=== PATIENT | female | born 1990 | race Caucasian/White ===

== ENCOUNTER 2017-12-26 10:28 | Emergency (ER) | payer SELFPAY ==
[2017-12-26] MEDS ORDERED: LIDOCAINE 2% VISCOUS SOLN 20 ML UDCUP PO ONE (10:59)
[2017-12-26] MEDS ORDERED: PENICILLIN V POTASSIUM 500 MG TABLET PO ONE (10:59)
--- NOTE | 2017-12-26 11:03 | ER Document Report ---
ED Oral Problem - General Chief Complaint: Jaw Pain Stated Complaint: JAW PAIN Time Seen by Provider: 12/26/17 10:46 Mode of Arrival: Ambulatory Information source: Patient Notes: 27-year-old female presents to ED for dental pain to tooth #19. She also has a large cavity to tooth #26. She states that tooth has been broken off for a while but started hurting bad 2 days ago and much worse last night. States she was stepping throbbing pain that she could not sleep. TRAVEL OUTSIDE OF THE [place] IN LAST 30 DAYS: No - HPI Patient complains to provider of: Jaw pain, Toothache Onset: Other - 2 days this time has multiple dental cavities. She states sometimes the pain is so bad that it radiates down her jaw down into her shoulder. Quality of pain: Sharp, Throbbing Severity: Moderate Pain Level: 4 Associated symptoms: Toothache Worsened by: Cold Relieved by: Nothing Similar symptoms previously: Yes Recently seen / treated by doctor/dentist: No - Related Data Allergies/Adverse Reactions: No Known Allergies Allergy (Verified 12/26/17 16:35) Past Medical History - General Information source: Patient - Social History Smoking Status: Never Smoker Cigarette use (# per day): No Chew tobacco use (# tins/day): No Smoking Education Provided: No Frequency of alcohol use: Occasional Drug Abuse: None Lives with: Family Family History: CAD, Hyperlipidemia, Hypertension, Malignancy. denies: Arthritis, COPD, CVA, DM, Thyroid Disfunction Patient has suicidal ideation: No Patient has homicidal ideation: No - Past Medical History Cardiac Medical History: Reports: Hx Hypertension Pulmonary Medical History: Reports: None EENT Medical History: Reports: None Neurological Medical History: Reports: Hx Migraine Endocrine Medical History: Reports: None Renal/ Medical History: Reports: None Malignancy Medical History: Reports: None GI Medical History: Reports: None Musculoskeltal Medical History: Reports None Skin Medical History: Reports None Psychiatric Medical History: Reports: None Traumatic Medical History: Reports: None Infectious Medical History: Reports: None Past Surgical History: Reports: Hx Section - Immunizations Immunizations up to date: Yes Review of Systems - Review of Systems Constitutional: No symptoms reported Physical Exam - Vital signs Vitals: Temp Pulse Resp BP Pulse Ox 98.6 F 86 20 124/90 H 98 12/26/17 10:33 12/26/17 10:33 12/26/17 10:33 12/26/17 10:33 12/26/17 10:33 Interpretation: Normal - General General appearance: Appears well, Alert - HEENT Head: Normocephalic, Atraumatic Eyes: Normal Pupils: PERRL Ears: Normal External canal: Normal Tympanic membrane: Normal Sinus: Normal Nasal: Normal Mouth/Lips: Caries Mucous membranes: Normal Teeth diagram: 1 - Tooth #19 has a cavity that is painful tooth #26 also has a cavitY and is painful. Patient also has multiple other dental problems that need to be corrected. Pharynx: Normal Neck: Normal - Respiratory Respiratory status: No respiratory distress Chest status: Nontender Breath sounds: Normal Chest palpation: Normal - Cardiovascular Rhythm: Regular Heart sounds: Normal auscultation Murmur: No - Abdominal Inspection: Normal Distension: No distension Bowel sounds: Normal Tenderness: Nontender Organomegaly: No organomegaly - Back Back: Normal, Nontender - Extremities General upper extremity: Normal inspection, Nontender, Normal color, Normal ROM , Normal temperature General lower extremity: Normal inspection, Nontender, Normal color, Normal ROM , Normal temperature, Normal weight bearing. No: Jessica's sign - Neurological Neuro grossly intact: Yes Cognition: Normal Orientation: AAOx4 Greg Coma Scale Eye Opening: Spontaneous [place] Coma Scale Verbal: Oriented Greg Coma Scale Motor: Obeys Commands [place] Coma Scale Total: 15 Speech: Normal Motor strength normal: LUE, RUE, LLE, RLE Sensory: Normal - Psychological Associated symptoms: Normal affect, Normal mood - Skin Skin Temperature: Warm Skin Moisture: Dry Skin Color: Normal Course - Re-evaluation Re-evalutation: 12/26/17 21:30 Patient treated with penicillin vk and viscous lidocaine in the emergency room and discharged home with a syringe of viscous lidocaine and a prescription for penicillin. Patient was instructed to follow-up with the dentist or a oral surgeon to have these dental problems corrected. - Vital Signs Vital signs: Temp Pulse Resp BP Pulse Ox 98.5 F 92 20 128/82 H 100 12/26/17 11:20 12/26/17 11:20 12/26/17 11:20 12/26/17 11:20 12/26/17 11:20 Discharge - Discharge Clinical Impression: Pain due to dental caries Condition: Stable Disposition: HOME, SELF-CARE Instructions: Dentist Additional Instructions: TOOTHACHE: Your pain is due to dental decay. The tooth must be repaired in order for you to feel better. You will, therefore, be referred to a dentist. We do not have dentists on the staff at [facility]. Severe swelling or drainage around a tooth usually means a dental abscess. This also requires evaluation and treatment by the dentist, but antibiotics may be prescribed while awaiting dental treatment. You should be rechecked immediately if you develop major swelling of the face, increasing pain, a lump in the jaw or gums, headache, difficulty swallowing, or fever. PENICILLIN V K: You have been given a prescription for Penicillin VK. Your physician has determined that this is the best antibiotic for your condition. Pen VK can be taken with meals, however more of the antibiotic gets into the bloodstream if it's taken on an empty stomach. Penicillin usually has no side effects. However, allergy to penicillins is common. If you have had an allergic reaction to any drug of the penicillin family, you should never take any other penicillin. Notify your doctor at once if you develop hives, itching, swelling, faintness, or shortness of breath. I have given you a syringe of lidocaine. You can put a small amount on your finger and rub it on the gums and tooth to decrease her pain he can also take ibuprofen for your dental pain. The Penicillin VK will help with the infection which will decrease your pain. FOLLOW-UP CARE: You have been referred for follow-up care to the dentists listed below. Call the dentists office for an appointment as you were instructed or within the next two days. If you experience worsening or a significant change in your symptoms, notify the physician immediately or return to the Emergency Department at any time for re-evaluation. [facility] [address], [place] Wednesday mornings, by appointment [facility] [address] [place] [address] [facility] [address] [facility] [address] [facility] [address] [facility] [email or web address] [facility] [address] [place] [address] Wednesday- 8:00am to 5:00 pm Will see patients from other [facility]. Charges based on income and family size and accepts Medicare, Medicaid, and Insurances Will pull molars [facility] [place] [address] Hours of Operation 8:00 am - 4:30 pm weekdays The following dental offices accept Medicaid: [facility] Dr. Gutierrez Dr. Singh Dr. Fan Dr. De Leon Demetris Mathew Lutsavage, and [facility] oral surgery Dr. Zuniga ([place]) Dr. Gutierrez ([place]) [facility] Drs. Santos and Haim ([place]) Dr. Salinas ([place]) [facility] Dr. Cuevas ([place]) Drs. Zapata and ([place]) Medicaid Care Line Prescriptions: Ibuprofen 800 mg PO Q8HP PRN #20 tablet PRN Reason: Penicillin V Potassium [Penicillin Vk 500 mg Tablet] 500 mg PO BID #20 tablet Forms: Elevated Blood Pressure Referrals: GERALDINE BUITRAGO DDS [ACTIVE STAFF] - Follow up as needed
[2017-12-26 11:21] VITALS: BP 128/82
== END 2017-12-26 11:21 | disposition home or self-care (01) ==
LOC: ER 10:28
DX: K02.9 Dental caries, unspecified (principal); K08.89 Other specified disorders of teeth and supporting structures; I10 Essential (primary) hypertension
CPT/HCPCS: 99283; J3490

== ENCOUNTER 2017-12-26 16:34 | Emergency (ER) | payer SELFPAY ==
[2017-12-26] MEDS ORDERED: DIPHENHYDRAMINE HCL 50 MG/ML VIAL IV ONE (16:56)
[2017-12-26] MEDS ORDERED: DEXAMETHASONE SOD PHOS INJ 10 MG/1 ML VIAL IV ONE (16:56)
[2017-12-26] MEDS ORDERED: NORMAL SALINE 1000 ML 1,000 ML IV ONE (16:56)
[2017-12-26] MEDS ORDERED: FAMOTIDINE INJ/PF 20 MG/2 ML SDV IV ONE (16:56)
[2017-12-26] MEDS ORDERED: LORAZEPAM INJ 2 MG/1 ML VIAL IV ONE (16:59)
--- NOTE | 2017-12-26 17:06 | ER Document Report ---
ED Allergic Reaction - General Chief Complaint: Shortness Of Breath Stated Complaint: SHORTNESS OF BREATH Time Seen by Provider: 12/26/17 16:56 Mode of Arrival: Ambulatory Information source: Patient, Relative TRAVEL OUTSIDE OF THE [place] IN LAST 30 DAYS: No - HPI Onset: Just prior to arrival Onset/Duration: Gradual Quality of pain: Dull Severity: Mild Identified cause: Possibly Medication Exposure: Antibiotic - P.O. PENICILLIN GIVEN ON PRIOR E.D. VISIT Skin rash / itching: Facial, "Redness" Associated symptoms: Chest pain Similar symptoms previously: No Recently seen / treated by doctor: Yes - [facility] E.D. EARLIER TODAY - Related Data Allergies/Adverse Reactions: No Known Allergies Allergy (Verified 12/26/17 16:35) Past Medical History - General Information source: Patient, Relative - Social History Smoking Status: Unknown if Ever Smoked Frequency of alcohol use: None Drug Abuse: None Lives with: Spouse/Significant other Family History: Other - ASTHMA Patient has suicidal ideation: No Patient has homicidal ideation: No - Past Medical History Cardiac Medical History: Reports: Hx Hypertension Pulmonary Medical History: Reports: None EENT Medical History: Reports: None Neurological Medical History: Reports: None Endocrine Medical History: Reports: None Renal/ Medical History: Reports: None. Denies: Hx Peritoneal Dialysis Malignancy Medical History: Reports: None GI Medical History: Reports: None Musculoskeltal Medical History: Reports None Psychiatric Medical History: Reports: None Past Surgical History: Reports: Hx Section Review of Systems - Review of Systems Constitutional: See HPI EENT: See HPI Cardiovascular: See HPI Respiratory: No symptoms reported Gastrointestinal: No symptoms reported Genitourinary: No symptoms reported Female Genitourinary: No symptoms reported Musculoskeletal: No symptoms reported Skin: See HPI Neurological/Psychological: Numbness - L. UPPER EXTREMITY Physical Exam - Vital signs Vitals: Temp Pulse Resp BP Pulse Ox 99.1 F 133 H 24 H 142/98 H 100 12/26/17 16:40 12/26/17 16:40 12/26/17 16:40 12/26/17 16:40 12/26/17 16:40 Interpretation: Hypertensive, Tachycardic, Tachypneic. No: Hypoxic, Febrile - General General appearance: Alert, Anxious In distress: Mild - HEENT Head: Normocephalic Eyes: Normal Conjunctiva: Normal Ears: Normal Nasal: Normal Mouth/Lips: Normal, Caries, Dental fracture - L. LOWER 1st MOLAR Mucous membranes: Normal Pharynx: Normal. No: Tonsillar hypertrophy, Uvular edema, Potential airway comprom. Neck: Normal - Respiratory Respiratory status: No respiratory distress Breath sounds: Normal. No: Wheezing - Cardiovascular Rhythm: Regular, Tachycardia Heart sounds: Normal auscultation Murmur: No - Abdominal Inspection: Normal Distension: No distension Bowel sounds: Hypoactive - Back Back: Normal - Extremities General upper extremity: Normal inspection General lower extremity: Normal inspection - Neurological Neuro grossly intact: Yes Cognition: Normal Orientation: AAOx4 - Psychological Associated symptoms: Normal affect, Normal mood - Skin Skin Temperature: Warm Skin Moisture: Dry - NO DIAPHORESIS Skin Color: Normal Skin Turgor: Elastic Skin irregularity: Rash Location of irregularity: Face Character of irregularity: Macular, Lacy, Erythematous. negative: Petechial, Urticarial Course - Re-evaluation Re-evalutation: 12/26/17 17:43 Patient states she feels some better, some residual pain remains. Results of testing discussed with patient and spouse. Will order intravenous antibiotic for treatment of dental infection. - Vital Signs Vital signs: Temp Pulse Resp BP Pulse Ox 99.1 F 133 H 14 106/68 99 12/26/17 16:40 12/26/17 16:40 12/26/17 20:00 12/26/17 20:00 12/26/17 20:00 - Laboratory Result Diagrams: 12/26/17 16:55 12/26/17 16:55 Laboratory results interpreted by me: 12/26/17 12/26/17 12/26/17 16:55 16:55 18:00 WBC 15.2 H RDW 14.6 H Seg Neuts % (Manual) 79 H Band Neutrophils % 17 H Lymphocytes % (Manual) 4 L Monocytes % (Manual) 0 L Abs Neuts (Manual) 14.6 H Abs Monocytes (Manual) 0.0 L Potassium 3.1 L BUN 5 L Glucose 113 H Total Protein 8.4 H Urine Ketones TRACE H Urine Blood SMALL H - EKG Interpretation by Me EKG shows normal: Sinus rhythm, Parks, QRS Complexes. abnormal: Intervals - BORDERLINE LONG QT, ST-T Waves - BORDERLINE T ABNLS, ANT. Rate: Tachycardia Discharge - Discharge Clinical Impression: Infected dental caries Allergic reaction Qualifiers: Encounter type: initial encounter Qualified Code(s): T78.40XA - Allergy, unspecified, initial encounter Condition: Stable Disposition: HOME, SELF-CARE Instructions: Acute Allergic Reaction to Drugs ([facility]), Dental Infection or Abscess ([facility]) Additional Instructions: TAKE CLINDAMYCIN DIRECTED. DON'T TAKE ANY MORE PENICILLIN, ALERT FUTURE HEALTH CARE PROVIDERS ABOUT POSSIBLE ALLERGY TO PENICILLIN. TAKE IBUPROFEN FOR PAIN IF NEEDED. FOLLOW UP WITH DENTIST SOON POSSIBLE FOR NECESSARY TREATMENT OF INFECTED TOOTH. Prescriptions: Clindamycin HCl [Cleocin 150 mg Capsule] 300 mg PO Q6 #56 capsule
[2017-12-26] MEDS ORDERED: NITROGLYCERIN 0.4 MG/TAB 25 TAB/BOTTLE SL ONE (17:22)
[2017-12-26 17:25] LABS: HEMATOCRIT 38.2 % (36.0-47.0); HEMOGLOBIN 12.8 g/dL (12.0-15.5); MEAN CORPUSCULAR HEMOGLOBIN 28.2 pg (27.0-33.4); MEAN CORPUSCULAR HGB CONC 33.4 g/dL (32.0-36.0); MEAN CORPUSCULAR VOLUME 84 fl (80-97); PLATELET COUNT 313 10^3/uL (150-450); RED BLOOD COUNT 4.54 10^6/uL (3.72-5.28); RED CELL DISTRIBUTION WIDTH 14.6 % (11.5-14.0); WHITE BLOOD COUNT 15.2 10^3/uL (4.0-10.5)
[2017-12-26 17:36] LABS: ALANINE AMINOTRANSFERASE 23 U/L (9-52); ALBUMIN 4.8 g/dL (3.5-5.0); ALKALINE PHOSPHATASE 82 U/L (38-126); ANION GAP 14 (5-19); ASPARTATE AMINO TRANSFERASE 30 U/L (14-36); BILIRUBIN,DIRECT 0.4 mg/dL (0.0-0.4); BILIRUBIN,TOTAL 0.8 mg/dL (0.2-1.3); BLOOD UREA NITROGEN 5 mg/dL (7-20); CALCIUM 9.7 mg/dL (8.4-10.2); CARBON DIOXIDE 25 mmol/L (22-30); CHLORIDE 103 mmol/L (98-107); GLUCOSE 113 mg/dL (75-110); POTASSIUM 3.1 mmol/L (3.6-5.0); SODIUM 141.6 mmol/L (137-145); TOTAL PROTEIN 8.4 g/dL (6.3-8.2)
[2017-12-26] MEDS ORDERED: CLINDAMYCIN 600 MG/D5W RTU 600 MG/50 ML RTUPB IV ONE (17:41)
[2017-12-26] MEDS ORDERED: HYDROMORPHONE HCL INJ/PF 2 MG/ML AMPULE IV ONE (17:49)
[2017-12-26] MEDS ORDERED: ONDANSETRON HCL INJ/PF 4 MG/2 ML SDV IV ONE (17:49)
[2017-12-26 17:50] LABS: ABSOLUTE LYMPHOCYTES# (MANUAL) 0.6 10^3/uL (0.5-4.7); ABSOLUTE NEUTROPHILS# (MANUAL) 14.6 10^3/uL (1.7-8.2); BASOPHILS % (MANUAL) 0 % (0-2); EOSINOPHILS % (MANUAL) 0 % (0-6); LYMPHOCYTES % (MANUAL) 4 % (13-45); MONOCYTES % (MANUAL) 0 % (3-13); SEGMENTED NEUTROPHILS % (MAN) 79 % (42-78); TOTAL CELLS COUNTED 100
[2017-12-26 17:53] LABS: ANISOCYTOSIS SLIGHT; PLATELET CLUMPS PRESENT; PLATELET COMMENT ADEQUATE; TOXIC GRANULATION 1+; TOXIC VACUOLATION PRESENT
[2017-12-26 17:54] LABS: BAND NEUTROPHILS % (MANUAL) 17 % (3-5)
[2017-12-26 18:03] LABS: CREATINE KINASE MB < 0.22 ng/mL (<4.55); TROPONIN I < 0.012 ng/mL
[2017-12-26 18:41] LABS: APPEARANCE,URINE CLEAR; BILIRUBIN,URINE NEGATIVE (NEGATIVE); COLOR,URINE STRAW; GLUCOSE, URINE NEGATIVE (NEGATIVE); KETONES,URINE TRACE mg/dL (NEGATIVE); LEUKOCYTE ESTERASE,URINE NEGATIVE (NEGATIVE); NITRITE,URINE NEGATIVE (NEGATIVE); PROTEIN,URINE NEGATIVE (NEGATIVE); URINE SPECIFIC GRAVITY 1.005; UROBILINOGEN,URINE NEGATIVE mg/dL (<2.0)
[2017-12-26 20:35] VITALS: BP 106/68
--- NOTE | 2017-12-27 01:30 | EKG REPORT ---
SEVERITY:- BORDERLINE ECG - SINUS TACHYCARDIA BORDERLINE T ABNORMALITIES, ANTERIOR LEADS BORDERLINE PROLONGED QT INTERVAL : Confirmed by: Jaylene Alvarez MD 27-Dec-2017 01:30:01
== END 2017-12-26 20:46 | disposition home or self-care (01) ==
LOC: ER 16:34
DX: K04.7 Periapical abscess without sinus (principal); T78.40XA Allergy, unspecified, initial encounter; X58.XXXA Exposure to other specified factors, initial encounter; K02.9 Dental caries, unspecified; R06.02 Shortness of breath; R07.9 Chest pain, unspecified; I10 Essential (primary) hypertension; R20.0 Anesthesia of skin; R00.0 Tachycardia, unspecified; R94.31 Abnormal electrocardiogram [ECG] [EKG]
CPT/HCPCS: 99285; 96361; 96375; 96365; 36415; 82553; 82550; 85025; 80053; 81001; 84484; 93005; J1200; J1170; J2060; J2405; J7030; S0028; J1100; 93010